=== PATIENT | male | born 1995 | race Caucasian/White ===

== ENCOUNTER 2020-01-21 17:11 | Emergency (ER) | payer BC, SELFPAY ==
[2020-01-21 17:13] VITALS: BP 148/64; PULSE 98; RESP 16; TEMP 36.7; O2SAT 100; BMI 23.1
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
[2020-01-21 18:15] VITALS: BP 143/91; PULSE 96; RESP 20; O2SAT 99
[2020-01-21 19:18] VITALS: BP 132/81; PULSE 84; RESP 16; TEMP 36.6; O2SAT 98
[2020-01-22] MEDS: HYDROcodone-acetaminophen 5-325 mg Tablet 1 TAB PO (10:54)
== END 2020-01-21 19:21 | disposition home or self-care (01) ==
PROVIDERS: Emergency Provider Emergency Medicine
DX: S01.81XA Laceration without foreign body of other part of head, initial encounter (principal); Y00.XXXA Assault by blunt object, initial encounter
CPT/HCPCS: 12002; 12345; 70450; 99281; 99283

== ENCOUNTER 2020-10-17 19:27 | Emergency (ER) | payer BC, SELFPAY ==
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
[2020-10-17 19:35] VITALS: BP 133/66; PULSE 109; RESP 22; TEMP 36.9; O2SAT 100; BMI 21.2
== END 2020-10-17 20:39 | disposition left against medical advice (07) ==
PROVIDERS: Emergency Provider Family Medicine
DX: Z53.21 Procedure and treatment not carried out due to patient leaving prior to being seen by health care provider (principal)
CPT/HCPCS: 73030

== ENCOUNTER 2020-10-18 16:29 | Emergency (ER) | payer BC, SELFPAY ==
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
[2020-10-18 16:39] VITALS: BP 151/89; PULSE 94; RESP 18; TEMP 35.6; O2SAT 98; BMI 22.0
[2020-10-18 16:46] VITALS: BP 140/96; PULSE 72; O2SAT 97
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
--- NOTE | 2020-10-19 08:38 | DCPLANNER ---
barn and property manager had message to schedule a follow up appointment for patient with ortho. barn and property manager called the ortho clinic, spoke with Serenity, gave clinic patients information. barn and property manager was told that patients information would be printed and reviewed. Clinic will call patient with appointment information.
--- NOTE | 2020-10-20 11:06 | DCPLANNER ---
Patient had a follow up appointment scheduled for 10.20.[address] Perez at [facility] - patient did attend appointment.
== END 2020-10-18 18:33 | disposition home or self-care (01) ==
PROVIDERS: Emergency Provider Physician Assistant
DX: S42.114A Nondisplaced fracture of body of scapula, right shoulder, initial encounter for closed fracture (principal); S42.021A Displaced fracture of shaft of right clavicle, initial encounter for closed fracture; V86.56XA Driver of dirt bike or motor/cross bike injured in nontraffic accident, initial encounter
CPT/HCPCS: 73030; 99281

== ENCOUNTER 2020-10-20 13:44 | Outpatient (CLI) | payer BC, SELFPAY | END 2020-10-20 13:45 | disposition home or self-care (01) | LOC: SPT 13:45 | PROVIDERS: Visit Provider Specialist | DX: Z46.89 Encounter for fitting and adjustment of other specified devices (principal); S42.114D Nondisplaced fracture of body of scapula, right shoulder, subsequent encounter for fracture with routine healing; S42.021D Displaced fracture of shaft of right clavicle, subsequent encounter for fracture with routine healing; X58.XXXD Exposure to other specified factors, subsequent encounter | CPT/HCPCS: 97760; L3670 ==

== ENCOUNTER 2021-01-19 13:06 | Emergency (ER) | payer BC, SELFPAY ==
[2021-01-19 13:19] VITALS: BP 130/81; PULSE 73; RESP 16; TEMP 36.6; O2SAT 100
[2021-01-19 13:47] VITALS: BP 125/58; PULSE 63; RESP 16; TEMP 36.5; O2SAT 98
--- NOTE | 2021-01-19 13:52 | W.ED.GENADLT ---
HPI - General Adult General: Chief complaint: Ear Stated complaint: something stuck in his ear Time Seen by Provider: 01/19/21 13:09 History of Present Illness: HPI narrative: 26-year-old male currently incarcerated presented to the emergency room with concerns of right-sided ear pain after inserting a rubber ball into the right ear about a month ago. Patient says that he has not had any discharge but reports significant pain with difficulty sleeping. Onset: 1 month ago Duration:1 month Location:correction Severity: moderate Review of Systems Narrative: Constitutional: No fever, no chills. HEENT: No vision changes, +R ear pain CV: No chest pain, no palpitations PULM: no cough, no dyspnea. GI: No abdominal pain, no N/V/D. : No dysuria MSKEL: No muscle pain SKIN: No new rashes, no lesions. NEURO: No headache, no focal weakness. HEME: No visible bruises PSYCH: Normal mood PFSH ED PFSH: Social History Smoking and tobacco status: current every day smoker Physical Exam Narrative: EXAM NARRATIVE: Head: Atraumatic Eyes: PERRL, conjunctiva without injection ENT: Mucous membrane moist, +R ear foreign object NECK: Supple, ROM intact LUNGS: LCTAB, no crackles/rhonchi CV: RRR ABDOMEN: Soft, nontender in all quadrants EXTREMITY: Normal ROM SKIN: No rash or erythema NEURO: Awake and alert, no focal motor deficits PSYCH: Normal mood and affect Course Vital Signs: Vital signs: Vital Signs Temperature 97.8 F 01/19/21 13:19 Pulse Rate 73 01/19/21 13:19 Respiratory Rate 16 01/19/21 13:19 Blood Pressure 130/81 01/19/21 13:19 Pulse Oximetry 100 01/19/21 13:19 MDM - General Adult MDM Narrative: Medical decision making narrative: 46-year-old male presenting to the emergency room with concerns of right ear pain retained foreign object. On exam, patient is noted to have a bright yellow object in the right ear. Object was successfully removed after irrigation and forcep. Post removal exam showed EAC edema. Rx ciprodex BID for otitis externa I have given patient follow up with our registered nurse hh case manager to be seen by our outpatient ENT provider for evaluation of otitis externa if symptoms persist. Patient aware of a call from our registered nurse hh case manager to schedule for appointment(s) and verbalizes understanding of the importance of following up. Disposition: Discharge. Patient counseled regarding diagnostic impression, treatment plan. Patient given ED strict return precautions to return for continuation, worsening, or development of new symptoms. Instructed to f/u w/ ENT regarding symptoms today. Patient verbalized understanding. Discharge Plan Discharge Patient Disposition: Home Clinical Impression: Otitis externa, Ear foreign body Condition: Stable Prescriptions: New Ciprodex 0.3-0.1 % drops,suspension 4 drp otic (ear) BID 7 Days RF: 0 No Action (DME) Shoulder immobilizer See Rx Instructions .ROUTE .MEDSUPPLY Qty: 1 RF: 0 hydrocodone-acetaminophen 5-325 mg tablet 1 tab PO Q6H PRN (Reason: pain) Qty: 14 RF: 0 Discharge Orders: Discharge ED (Routine); Ordered 01/19/21 Ordered By: Edilberto Thomas Discharge Diet: Advance as tolerated Discharge Activity: Resume usual activity Patient Instructions: Otitis Externa - Adult Activity Restrictions/Additional Instructions: Please take your antibiotics drops as instructed. Please do not put any more foreign objects in your ears. Come back to the emergency room have any new or concerning complaints. Coding Level of Care Code ED Weight Loss Sales Consultant for Lynn Hernandez
--- NOTE | 2021-01-20 11:24 | DCPLANNER ---
Addendum entered by Floridalma Connors 01/24/21 08:28: manager intelligence was told that when clinic called the [facility] that at this time they did not want patient to be seen yet. That the nurse for the [facility] will be in next week and the [facility] wants the nurse to look at patient then determine if he needs to be seen. If patient needs to be seen, the [facility] will call clinic and schedule an appointment. Original Note: manager intelligence had message to schedule a follow up appointment for patient with ENT. manager intelligence emailed patients information to both Kelly and Orquidea at [facility] General Surgery / ENT clinic. Patients information will be printed and reviewed. Clinic will call patient with appointment information.
== END 2021-01-19 14:21 | disposition home or self-care (01) ==
PROVIDERS: Emergency Provider Emergency Medicine
DX: H60.8X1 Other otitis externa, right ear (principal); T16.1XXA Foreign body in right ear, initial encounter; F17.200 Nicotine dependence, unspecified, uncomplicated; Z79.891 Long term (current) use of opiate analgesic; X58.XXXA Exposure to other specified factors, initial encounter; Y92.149 Unspecified place in prison as the place of occurrence of the external cause
CPT/HCPCS: 99281

== ENCOUNTER 2024-10-05 03:33 | Emergency (ER) | payer SELFPAY ==
[2024-10-05 03:40] VITALS: BP 117/79; PULSE 86; RESP 18; TEMP 36.7; O2SAT 98; BMI 23.3
--- OUTSIDE RECORDS SUMMARY | 2024-10-05 03:43 | XMS_ITS | Patient Health Record ---
Author Organization [facility] Address [address] [place] [address] Care Team Providers Care Supervisor Painting Name Role Phone Claudia Cano Primary Care Provider [phone] Allergies No Known Allergies Reason For Referral No Information Medications Medication SIG (Take, Route, Frequency, Duration) Notes Start Date End Date Status traZODone HCl 50 MG Tablet TAKE 1 TABLET BY MOUTH AT BEDTIME NEEDED; Duration: 30 Active Citalopram Hydrobromide 20 MG Tablet Take 1 tablet by mouth once daily; Duration: 30 Active busPIRone HCl 15 MG Tablet Take 1 tablet by mouth twice daily; Duration: 30 Active Social History Tobacco Use: Social History Observation Description Date Details (start date - stop date) Current Smoker NA - NA Social History Depression Screening Social Info Question Answer Notes PHQ-9 Little interest or p claire in doing things More than half the days Feeling down, depressed, or hopeless More than h isabella the days Trouble falling or staying asleep, or sleeping t oo much Nearly every day Feeling tired or having little energy More than half the days Poor appetite or overeating More than half the d ays Feeling bad about yourself, or that you are a failure, or have let yourself or your family down Not at all Trouble concentrating on thi ngs, such as reading the newspaper or watching television Not at all Moving or speaking so slowly that other people could have noticed. Or the opposite ? being so fidgety or restless that you have been moving around a lot more than usual Not at all Thoughts that you would be b guerda off , or of hurting yourself in some way Not at all Total Score 11 Interpretation Moderate Depression Drug/Alcohol: Social Info Question Answer Notes AUDIT-C (Standard) Did you have a drink containing alcohol in the past year? Yes How often did you have six or more drinks on one occasion in the past year? Less than monthly (1 point) How many drinks did you have on a typical day when you were drinking in the past year? 1 or 2 drinks (0 point) How often did you have a drink containing alcohol in the past year? Monthly or less (1 point) Points 2 Interpretation Negative Tobacco Use: Social Info Question Answer Notes Tobacco Control (Standard) Tobacco use: Current smoker How often do you smoke cigarettes? Every day How many cigarettes a day do you smoke? 6-10 Section Notes: 01/02/24 PHQ9 Patient's moth er recently Problems Problem Type SNOMED Code ICD Code Onset Dates Problem Status W/U Status Risk Notes Problem Depression with anxiety (F41.8) Active confirmed Problem Acute insomnia (997917681) Acute insomnia (G47.00) Active confirmed Vital Signs Heart Rate 73 /min 01/02/2024 Temperature 98.1 degrees Fahrenheit 01/02/2024 Respiratory Rate 20 /min 01/02/2024 Height-cm 185.42 cm 01/02/2024 Oximetry 100 % 01/02/2024 Blood pressure diastolic 82 mm Hg 01/02/2024 Weight-kg 79.38 kg 01/02/2024 Height 73 in 01/02/2024 Blood pressure systolic 132 mm Hg 01/02/2024 Weight 175 lbs 01/02/2024 BMI 23.09 kg/m2 01/02/2024 Encounters Encounter Location Date Provider Diagnosis [facility] [address] [address] 01/02/2024 Claudia Batterton Depression with anxiety F41.8 ; Acute insomnia G47.00 and Depression screen Z13.31 [facility] [address] [address] 01/15/2024 Claudia Batterton Depression with anxiety F41.8 [facility] [address] [address] 03/24/2024 Claudia Hagerton Assessments Encounter Date Diagnosis (ICD Code) Assessment Notes Treatment Notes Treatment Clinical Notes Section Notes 01/02/2024 Depression with anxiety (ICD-10 - F41.8) Pt lives in [place] and has a difficult time getting to clinic, so he will call clinic in 3 weeks with how doing with medications. 01/02/2024 Acute insomnia (ICD-10 - G47.00) 01/15/2024 Depression with anxiety (ICD-10 - F41.8) 01/02/2024 Depression screen (ICD-10 - Z13.31) Plan Of Treatment No Information
[2024-10-05] MEDS: ondansetron 2 mg/ML SDV 2 mL 4 MG IVP (05:28)
[2024-10-05 05:32] VITALS: BP 114/71; PULSE 70; RESP 16; O2SAT 98
[2024-10-05 05:33] LABS: Hematocrit 37.4 % (37-53); Hemoglobin 12.70 g/dL (11.27-16.99); Mean Corpuscular HGB Conc 34.0 g/dL (30-55); Mean Corpuscular Hemoglobin 28.1 pg (27-33); Mean Corpuscular Volume 82.7 fl (82-101); Nucleated Red Blood Cells % 0 %; Platelet Count 206 10^3/cmm (157-399); Red Blood Count 4.52 10^6/uL (3.85-5.65); White Blood Count 7.10 10^3/uL (3.29-11.43)
[2024-10-05 05:50] LABS: Alanine Aminotransferase 13 U/L (0-41); Albumin Level 4.3 g/dL (3.5-5.2); Alkaline Phosphatase 64 U/L (40-130); Anion Gap 18.8 (5-19); Aspartate Amino Transferase 25 U/L (0-40); Blood Urea Nitrogen 14 mg/dL (6-20); Calcium 9.1 mg/dL (8.5-10.5); Carbon Dioxide 23 mmol/L (22-29); Chloride 103 mmol/L (98-107); Creatinine Clr Calc Pharmacy 116.4427; Globulin 2.8 g/dL (1.3-4.6); Glucose 88 mg/dL (65-115); Osmolality Calculated 292 mOsm/kg (285-295); Potassium 3.8 mmol/L (3.5-5.1); Sodium 141 mmol/L (136-145); Total Protein 7.1 g/dL (6.6-8.7)
--- NOTE | 2024-10-05 06:01 | W.ED.NAVMDI ---
HPI - Nausea/Vomiting/Diarrhea General: Chief complaint: Nausea/Vomiting/Diarrhea Stated complaint: Vomiting\Confused Time Seen by Provider: 10/05/24 04:52 History of Present Illness: Patient is a 21-year-old male from home seen for nausea, vomiting, and diarrhea. He states that he has had uncontrollable diarrhea several times causing him to make a mess with his close which is embarrassing and he does not feel he can go to work. He thinks that this is caused by heat exhaustion. He has been out in the heat with the usual lately and not drinking sufficient amounts of water. He sometimes feels mildly lightheaded. He denies abdominal pain, fever, and has no other acute complaints. He would like IV fluids. Related Data Previous Rx's ?Medication ?Instructions ?Recorded hydrocodone 5 mg-acetaminophen 325 1 tab PO Q6H PRN pain #14 tabs 10/18/20 mg tablet Shoulder immobilizer #1 ea 10/20/20 ondansetron 4 mg disintegrating 4 mg PO Q8H PRN nausea and 10/05/24 tablet vomiting #20 tabs Allergies Allergy/AdvReac Type Severity Reaction Status Date / Time No Known Allergies Allergy Verified 10/20/20 10:08 [facility] ED PFSH: Social History Smoking and tobacco/nicotine status: current every day tobacco/nicotine user Physical Exam Const: COMMON NORMALS: no acute distress, patient oriented x3 and alert HENMT: COMMON NORMALS: normocephalic and atraumatic HEAD & SCALP: normocephalic and atraumatic Eye: COMMON NORMALS: Equal, round and reactive pupils present, EOMs intact bilaterally and no scleral icterus PUPIL: Yes Equal, round and reactive pupils present Resp: COMMON NORMALS: normal respiratory effort and No retractions Cardio: COMMON NORMALS: regular rate, regular rhythm and No murmurs present (Cardio) RATE: regular rate RHYTHM: regular rhythm GI: COMMON NORMALS: Normal to inspection, nondistended, normoactive bowel sounds present, Soft to palpation and non-tender PALPATION: Yes Soft to palpation Neuro: COMMON NORMALS: patient oriented x3 SENSORIUM/ORIENTATION: Yes alert Skin: COMMON NORMALS: no rashes or lesions noted GENERAL SKIN EXAM: no rashes or lesions noted Course Vital Signs: Vital signs: Vital Signs Temperature 98.0 F 10/05/24 03:40 Pulse Rate 70 10/05/24 05:32 Respiratory Rate 16 10/05/24 05:32 Blood Pressure 114/71 10/05/24 05:32 Pulse Oximetry 98 10/05/24 05:32 Oxygen Delivery Me thod Room Air 10/05/24 05:32 MDM - Nausea/Vomiting/Diarrhea Medical Decision Making Patient feels much better after receiving IV fluids. CBC and CMP are unremarkable. He will be given a short course of Zofran and 1 day off work and discharged in stable and improved condition. Lab Data 10/05/24 05:25 10/05/24 05:25 Laboratory Results WBC 7.10 10^3/uL (3.29-11.43) 10/05/24 05:25 RBC 4.52 10^6/uL (3.85-5.65) 10/05/24 05:25 Hgb 12.70 g/dL (11.27-16.99) 10/05/24 05:25 Hct 37.4 % (37-53) 10/05/24 05:25 MCV 82.7 fl (82-101) 10/05/24 05:25 MCH 28.1 pg (27-33) 10/05/24 05:25 MCHC 34.0 g/dL (30-55) 10/05/24 05:25 RDW 12.7 % (12.1-15.1) 10/05/24 05:25 Plt Count 206 10^3/cmm (157-399) 10/05/24 05:25 MPV 9.4 fL (7.4-10.4) 10/05/24 05:25 Neut % (Auto) 42.1 % 10/05/24 05:25 Lymph % (Auto) 35.2 % 10/05/24 05:25 [place] % (Auto) 11.4 % 10/05/24 05:25 Eos % (Auto) 9.9 % 10/05/24 05:25 Baso % (Auto) 1.3 % 10/05/24 05:25 Neut # (Auto) 2.99 10^3/uL (1.8-7.7) 10/05/24 05:25 Lymph # (Auto) 2.5 10^3/uL (0.8-4.8) 10/05/24 05:25 [place] # (Auto) 0.8 10^3/uL (0.2-0.9) 10/05/24 05:25 Eos # (Auto) 0.7 10^3/uL (0.0-0.8) 10/05/24 05:25 Baso # (Auto) 0.1 10^3/uL (0.0-0.1) 10/05/24 05:25 Nucleated RBC % (auto) 0 % 10/05/24 05:25 Nucleated RBCs # 0.0 /100WBC 10/05/24 05:25 Sodium 141 mmol/L (136-145) 10/05/24 05:25 Potassium 3.8 mmol/L (3.5-5.1) 10/05/24 05:25 Chloride 103 mmol/L (98-107) 10/05/24 05:25 Carbon Dioxide 23 mmol/L (22-29) 10/05/24 05:25 Anion Gap 18.8 (5-19) 10/05/24 05:25 BUN 14 mg/dL (6-20) 10/05/24 05:25 Creatinine 1.1 mg/dL (0.7-1.2) 10/05/24 05:25 GFR Calculation 79.7 mL/min (90-130) L 10/05/24 05:25 Glucose 88 mg/dL (65-115) 10/05/24 05:25 Calculated Osmolality 292 mOsm/kg (285-295) 10/05/24 05:25 Calcium 9.1 mg/dL (8.5-10.5) 10/05/24 05:25 Total Bilirubin 0.7 mg/dL (0.15-1.2) 10/05/24 05:25 AST 25 U/L (0-40) 10/05/24 05:25 ALT 13 U/L (0-41) 10/05/24 05:25 Alkaline Phosphatase 64 U/L (40-130) 10/05/24 05:25 Total Protein 7.1 g/dL (6.6-8.7) 10/05/24 05:25 Albumin 4.3 g/dL (3.5-5.2) 10/05/24 05:25 Globulin 2.8 g/dL (1.3-4.6) 10/05/24 05:25 No radiology studies performed this visit Discharge Plan Discharge Patient Disposition: Home Clinical Impression: Nausea vomiting and diarrhea Condition: Stable Prescriptions: New ondansetron 4 mg tablet,disintegrating 4 mg PO Q8H PRN (Reason: nausea and vomiting) Qty: 20 0RF No Action (DME) Shoulder immobilizer See Rx Instructions .ROUTE .MEDSUPPLY Qty: 1 0RF Rx Instructions: As directed hydrocodone-acetaminophen 5-325 mg tablet 1 tab PO Q6H PRN (Reason: pain) Qty: 14 0RF Discharge Orders: Discharge ED (Routine); Ordered 10/05/24 Ordered By: William Hines Discharge Diet: Advance as tolerated Discharge Activity: Increase activity as tolerated Patient Instructions: Acute Nausea and Vomiting (ED), Patient Portal & Pily Instructions Stand Alone Forms: Work/School Release Print Language: Tanzanian Coding Level of Care Code ED Media Professional for Lynn Hernandez
[2024-10-05 06:24] VITALS: BP 133/73; PULSE 70; RESP 16; O2SAT 98
== END 2024-10-05 06:25 | disposition home or self-care (01) ==
PROVIDERS: Emergency Provider Student in an Organized Health Care Education/Training Program
DX: R11.2 Nausea with vomiting, unspecified (principal); R19.7 Diarrhea, unspecified
CPT/HCPCS: 36415; 80053; 85025; 96361; 96374; 99284; J2405; J7030